=== PATIENT | female | born 1990 | race Two or more races ===

== ENCOUNTER 2018-09-06 12:23 | Observation (INO) | payer OTHER ==
[~2018-09-06] VITALS: Ht 175 cm; Wt 86.6 kg
[2018-11-09 09:47] VITALS: BP 107/70
[2018-11-09 11:31] LABS: HEMOGLOBIN A1C 5.1 % (4.5-6.2)
[2018-11-09] MEDS ORDERED: GLYB5 PO (12:30)
== END 2018-11-09 11:15 | disposition home or self-care (01) ==
LOC: 4S 11-09 09:01
PROVIDERS: ADMIT Obstetrics & Gynecology; ATTEND Obstetrics & Gynecology
DX: O24.419 Gestational diabetes mellitus in pregnancy, unspecified control (principal); Z3A.38 38 weeks gestation of pregnancy
CPT/HCPCS: 36415; 81002; 82947; 83036; G0378

== ENCOUNTER 2018-11-14 18:46 | Inpatient (IN) | payer OTHER ==
[~2018-11-14] VITALS: Ht 175.3 cm; Wt 86.6 kg
[~2018-11-14 18:46] MED LIST: GLYB5 PO
[2018-11-14] MEDS ORDERED: RINGERS SOLUTION,LACTATED 1,000 ML IV PRN (19:36)
[2018-11-14] MEDS ORDERED: RINGERS SOLUTION,LACTATED 1,000 ML IV SCH (19:36)
[2018-11-14] MEDS ORDERED: RINGERS SOLUTION,LACTATED 1,000 ML IV ONE (19:41)
[2018-11-14] MEDS ORDERED: CITRIC ACID/SODIUM CITRATE 30 ML SOLUTION UDCUP PO PRN (19:45)
[2018-11-14] MEDS ORDERED: LIDOCAINE/PF 1% 30 ML VIAL INJ PRN (19:45)
[2018-11-14] MEDS ORDERED: METOCLOPRAMIDE HCL 5 MG/ML 2 ML VIAL IVP PRN (19:45)
[2018-11-14] MEDS ORDERED: BUPIVACAINE HCL/PF 0.25% 10 ML VIAL ONE (19:53)
[2018-11-14] MEDS ORDERED: ROPIVACAINE HCL/PF 0.2% 100 ML ED ONE (19:53)
[2018-11-14] MEDS ORDERED: BUPIVACAINE HCL/DEX-WATER/PF 0.75% 2 ML AMP ONE (19:56)
[2018-11-14] MEDS: FentaNYL CITRATE-PF 100 MCG/2 ML VIAL IVP PRN (20:27)
[2018-11-14 21:07] LABS: BASOPHILS % (AUTO) 0.1 % (0.0-2.0); EOSINOPHILS % (AUTO) 0.8 % (1.0-6.0); HEMATOCRIT 43.1 % (36-46); HEMOGLOBIN 14.5 g/dL (12.0-16.0); LYMPHOCYTES # (AUTO) 1.7 K/uL (1.0-4.8); LYMPHOCYTES % (AUTO) 14.6 % (22.0-44.0); MEAN CORPUSCULAR HEMOGLOBIN 29.1 pg (26.0-34.0); MEAN CORPUSCULAR HGB CONC 33.7 G/dL (31.0-37.0); MEAN CORPUSCULAR VOLUME 86 fL (80-100); MONOCYTES # (AUTO) 0.6 K/uL (0.1-1.0); MONOCYTES % (AUTO) 5.4 % (2.0-9.0); NEUTROPHILS % (AUTO) 79.1 % (40.0-70.0); PLATELET COUNT (AUTO)-OB 210 K/uL (150-450); RED CELL DISTRIBUTION WIDTH 13.4 % (11.5-14.5)
[2018-11-14] MEDS ORDERED: NALBUPHINE HCL 10 MG/ML VIAL IVP PRN (21:45)
[2018-11-14] MEDS ORDERED: ONDANSETRON HCL 4 MG/2 ML VIAL IVP PRN (21:45)
[2018-11-14] MEDS ORDERED: DiphenhydrAMINE HCL 50 MG/ML VIAL IVP PRN (21:45)
[2018-11-14] MEDS ORDERED: ROPIVACAINE HCL/PF 0.2% 100 ML ED PRN (21:45)
[2018-11-14] MEDS ORDERED: OXYTOCIN 30 UNITS/LACT RINGERS 500 ML IV ONE (22:03)
[2018-11-15] MEDS ORDERED: CeFAZolin 2 GM/DEXTROSE 50 ML IV ONE
[2018-11-15] MEDS ORDERED: LANOLIN 7 GM OINTMENT TP PRN (00:30)
[2018-11-15] MEDS ORDERED: BENZOCAINE 20%/MENTHOL 56 GM SPRAY CANISTER TP PRN (00:30)
[2018-11-15] MEDS ORDERED: ACETAMINOPHEN/CODEINE 300-30 MG TABLET PO PRN (00:30)
[2018-11-15] MEDS ORDERED: GLYCERIN/WITCH HAZEL LEAF 40 PADS JAR TP PRN (00:30)
[2018-11-15] MEDS ORDERED: PREN-134 PO (04:51)
[2018-11-15 04:56] VITALS: BP 134/87
[2018-11-15] MEDS: ACETAMINOPHEN/CODEINE 300-30 MG TABLET PO PRN ×2 (06:08→20:20)
[2018-11-15] MEDS: IBUPROFEN 800 MG TABLET PO SCH ×2 (09:46→20:18)
[2018-11-15 10:26] LABS: GLUCOMETER DEV NAME(LOC) 4S.; GLUCOSE,POINT OF CARE 158 MG/DL (70-110)
[2018-11-15 14:40] LABS: GLUCOMETER DEV NAME(LOC) 4S.; GLUCOSE,POINT OF CARE 116 MG/DL (70-110)
[2018-11-15] MEDS: MAGNESIUM HYDROXIDE SUSPENSION 30 ML UDCUP PO SCH (20:18)
[2018-11-16 00:56] LABS: GLUCOMETER DEV NAME(LOC) 4S.; GLUCOSE,POINT OF CARE 167 MG/DL (70-110)
[2018-11-16] MEDS: IBUPROFEN 800 MG TABLET PO SCH ×2 (02:30→08:57)
[2018-11-16 06:46] LABS: GLUCOMETER DEV NAME(LOC) 4S.; GLUCOSE,POINT OF CARE 58 MG/DL (70-110)
[2018-11-16 06:46] LABS: GLUCOMETER DEV NAME(LOC) 4S.; GLUCOSE,POINT OF CARE 49 MG/DL (70-110)
[2018-11-16] MEDS: MAGNESIUM HYDROXIDE SUSPENSION 30 ML UDCUP PO SCH (08:57)
[2018-11-16 10:41] LABS: GLUCOMETER DEV NAME(LOC) 4S.; GLUCOSE,POINT OF CARE 145 MG/DL (70-110)
[2018-11-16] MEDS ORDERED: IBUP-2071 PO (10:52)
== END 2018-11-16 12:30 | disposition home or self-care (01) | DRG 807 ==
LOC: 4S 18:46 → OBSVTOIN 18:46
PROVIDERS: ADMIT Obstetrics & Gynecology; ATTEND Obstetrics & Gynecology
PROC: 10D07Z6 Extraction of Products of Conception, Vacuum, Via Natural or Artificial Opening (ICD-10-PCS; principal; 2018-11-15)
PROC: 0W8NXZZ Division of Female Perineum, External Approach (ICD-10-PCS; 2018-11-15)
PROC: 3E0R3BZ Introduction of Anesthetic Agent into Spinal Canal, Percutaneous Approach (ICD-10-PCS; 2018-11-15)
PROC: 00HU33Z Insertion of Infusion Device into Spinal Canal, Percutaneous Approach (ICD-10-PCS; 2018-11-15)
DX: O24.429 Gestational diabetes mellitus in childbirth, unspecified control (principal); Z37.0 Single live birth; Z3A.38 38 weeks gestation of pregnancy
CPT/HCPCS: 83036; 86850; 86900; 86901; 89060; J0690; J2590; J2795; J3010; J3490; J7120